=== PATIENT | female | born 1955 | race Caucasian/White ===

== ENCOUNTER → 2017-03-16 | Outpatient (CLI) | payer MEDICAID ==
[~2017-03-16] MED LIST: ASPIRIN EC325 M1 PO; LEVOTHYROXIN0.075 MG PO; NAPROSYN 500MG500 MG PO; NEXIUM40 MG PO; PRAVASTATIN 40M40 MG PO; PREMPRO 0.625 M1 TAB PO; ROPINIROLE HYDRO1 MG PO
[2017-03-16 11:33] LABS: HEMOGLOBIN 13.7 g/dL (12.2-16.2); LYMPH # 2.4 K/mm3 (0.7-4.5); LYMPH % 36.6 % (10-50.0)
[2017-03-16 14:34] LABS: BUN 9 mg/dL (7-18)
[2017-03-16 14:40] LABS: GFR (ESTIMATED) 63 ML/MIN (59-)
== END ==
LOC: LAB 11:18
PROVIDERS: Family Medicine
DX: I10 Essential (primary) hypertension (principal); E78.5 Hyperlipidemia, unspecified; E03.9 Hypothyroidism, unspecified; R20.2 Paresthesia of skin